=== PATIENT | female | born 1965 | race Caucasian/White ===

== ENCOUNTER 2019-06-05 14:35 | Emergency (ER) | payer OTHER ==
--- NOTE | 2019-06-05 14:39 | PDOC ---
Rapid Medical Evaluation Medical Evaluation: Allergies Allergy/AdvReac Type Severity Reaction Status Date / Time fluconazole [From Diflucan] AdvReac Intermediate Verified 02/25/14 18:27 I have performed a brief in-person evaluation of this patient. 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 06/05/19 14:38
[2019-06-05] MEDS ORDERED: ACETAMINOPHEN 325 MG TABLET (FP) PO ONE (14:40)
[2019-06-05 14:43] VITALS: BP 134/72; PULSE 89; TEMP 98.1; BMI 44.6
--- NOTE | 2019-06-05 14:58 | PDOC ---
History of Present Illness - General Chief Complaint: Headache Stated Complaint: LIGHTHEADED Time Seen by Provider: 06/05/19 14:37 History Source: Patient Exam Limitations: No Limitations Past History - Past Medical History Allergies/Adverse Reactions: Allergies Allergy/AdvReac Type Severity Reaction Status Date / Time fluconazole [From Diflucan] AdvReac Intermediate Verified 06/05/19 14:38 Home Medications: Ambulatory Orders Aripiprazole [Abilify -] 30 mg PO DAILY #0 tablet 01/31/13 Escitalopram Oxalate [Lexapro -] 20 mg PO DAILY #0 tablet 01/31/13 Levothyroxine [Synthroid -] 50 mcg PO DAILY@0700 #0 tablet 01/31/13 Quetiapine Fumarate [Seroquel -] 400 mg PO HS #0 tablet 01/31/13 Cyclobenzaprine HCl [Flexeril] 5 mg PO BID PRN 02/25/14 Lorazepam [Ativan] 1 mg PO TID PRN 02/25/14 Valacyclovir HCl [Valtrex] 500 mg PO ASDIR tablet 03/03/14 Cholecalciferol (Vitamin D3) [Vitamin D] 2,000 unit PO DAILY 11/16/15 Diclofenac Potassium [Zipsor] 25 - 50 mg PO QID PRN #20 capsule 11/16/15 Anemia: No Asthma: No Cancer: No Cardiac Disorders: No CVA: No COPD: No CHF: No Dementia: No Diabetes: Yes (TYPE II NOT ON MEDS) GI Disorders: Yes Disorders: No HTN: Yes Hypercholesterolemia: No Liver Disease: No Psychiatric Problems: Yes (BIPOLAR) Seizures: No Thyroid Disease: Yes (HYPOTHYROID) - Surgical History Abdominal Surgery: Yes (GASTRIC BYPASS) Appendectomy: No Cardiac Surgery: No Cholecystectomy: Yes Lung Surgery: No Neurologic Surgery: No Orthopedic Surgery: No - Immunization History Td Vaccination: Yes Immunization Up to Date: Yes (LAST INJECTION GIVEN FOR RABIES) - Psycho Social/Smoking Cessation Hx Smoking Status: No Smoking History: Never smoked Have you smoked in the past 12 months: No Number of Cigarettes Smoked Daily: 0 Information on smoking cessation initiated: No Hx Alcohol Use: No Drug/Substance Use Hx: No Substance Use Type: None Hx Substance Use Treatment: No Neuro Specific PMHX - Complaint Specific PMHX Glaucoma: No *Physical Exam - Vital Signs Last Vital Signs Temp Pulse Resp BP Pulse Ox 98.1 F 89 18 134/72 100 06/05/19 14:39 06/05/19 14:39 06/05/19 14:39 06/05/19 14:39 06/05/19 14:39 - Physical Exam General Appearance: No: Apparent Distress HEENT: positive: EOMI, ALFREDO Respiratory/Chest: positive: Lungs Clear, Normal Breath Sounds. negative: Respiratory Distress Cardiovascular: positive: Regular Rhythm, Regular Rate, S1, S2. 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 Denies fever, sob, cp, abd pain, vomiting, visual/gait changes, numbness/tingling/weakness of extremities. Patient neurologically intact Patient requesting Tylenol and requesting to go home At this point, do not feel need for CT imaging Stable for dc 06/05/19 14:54 Discharge - Discharge Information Problems reviewed: Yes Clinical Impression/Diagnosis: Headache Qualifiers: Headache type: unspecified Headache chronicity pattern: acute headache Intractability: not intractable Qualified Code(s): R51 - Headache Condition: Stable Disposition: HOME - Admission No - Additional Discharge Information Prescription Drug Monitoring Program (I-STOP) results: I-STOP not reviewed - Follow up/Referral - Patient Discharge Instructions Patient Printed Discharge Instructions: DI for Headache Additional Instructions: Thank you for choosing [facility]. It was a pleasure taking care of you. You may take Tylenol 650 mg every 6 hours by mouth as needed for mild to moderate pain. Do not take more than 4000 mg of Tylenol in 1 day. Recommend rest, hydration Return to the Emergency Department if your symptoms worsen or persist, you have fever, shortness of breath, chest pain, vomiting, weakness of extremities (arms and/or legs), changes in vision or walking or other concerning symptoms. - Post Discharge Activity
== END 2019-06-05 15:48 | disposition home or self-care (01) ==
LOC: JERFT 14:35
DX: R51 Headache (principal); R42 Dizziness and giddiness; R11.0 Nausea; Y92.238 Other place in hospital as the place of occurrence of the external cause; T59.891A Toxic effect of other specified gases, fumes and vapors, accidental (unintentional), initial encounter; Z88.0 Allergy status to penicillin; I10 Essential (primary) hypertension; E78.00 Pure hypercholesterolemia, unspecified; F31.9 Bipolar disorder, unspecified; E03.9 Hypothyroidism, unspecified; E11.9 Type 2 diabetes mellitus without complications; Z90.49 Acquired absence of other specified parts of digestive tract; Z98.84 Bariatric surgery status
CPT/HCPCS: 99281-25